=== PATIENT | female | born 1935 | race Caucasian/White ===

== ENCOUNTER 2016-05-06 22:47 | Inpatient (IN) | payer OTHER ==
[~2016-05-06] VITALS: Ht 175.3 cm; Wt 78.6 kg
--- NOTE | ~2016-05-06 | EKG ---
[address] [employer] [address] ELECTROCARDIOGRAM REPORT Name: JOSSE JJ Room #: 428-P ADM IN M.R.#: [id number] Admission: 05/07/16 Attend Phys: Rohith Arizmendi MD Discharge: Date of : 35 Report #: [id number] THIS REPORT FOR: //name// [facility] ED Test Date: 2016-05-06 Test Time: 23:06:04 Pat Name: JOSSE JJ Department: Room: [facility] Gender: F Skills Auditor: T[place] : 1935 Requested By: Yu Vale Order Number: [id number] MD: Onesimo Sheth Measurements Intervals Kathryn Rate: 68 P: 20 AR: 183 QRS: 2 QRSD: 91 T: 53 QT: 365 QTc: 389 Interpretive Statements Sinus rhythm No significant abnormality Compared to ECG 10/29/2015 10:02:58 Sinus tachycardia no longer present Electronically Signed On 05-07-2016 8:50:20 CDT by Onesiom Sheth [email or web address] <ELECTRONICALLY SIGNED> By: Onesimo Sheth MD, [facility] 05/07/16 0850 05 05 Onesimo Sheth MD, [facility] /EPI
[~2016-05-06 22:47] MED LIST: AMLODIPINE; AMLODIPINE BESYL5 MG PO; ANTIFUNGAL15 G1 TP; ARICEPT 5 MG TAB5 MG PO; ARICEPT10 M1 PO; ASPIRIN EC81 M1 PO; ATIVAN0.5 MG PO; AUGMENTIN 875875 MG PO; BENADRYL25 MG PO; BENICAR20 MG PO; BENICAR40 MG PO; CALCIUM500 M1 PO; CIPRO500 MG PO; CIPROFLOXACIN500 M1 PO; CLOTRIMAZOLE 1%15 G1; CLOTRIMAZOLE-BE15 GM; COLACE100 MG PO; COUMADIN 1MG TAB1 M1 PO; DIOVAN160 MG PO; DONEPEZIL; ENOXAPARIN30 MG/0.1 SUBQ; GABAPENTIN 100100 MG PO; HYDROCODONE-AP1 EAC6 PO; IBUPROFEN 200200 M1 PO; KEFLEX500 MG PO; LISINOPRIL10 MG PO; LORAZEPAM; LORAZEPAM 0.50.5 MG PO; LORAZEPAM 1 MG T1 MG PO; METOPROLOL; MIRALAX17 GM PO; NEURONTIN600 MG PO; NORCO 5-325 TA1 EACH PO; NORTRIPTYLINE H25 M3 PO; NORVASC10 MG PO; NYSTATIN 100,0015 G1 TOP; NYSTOP; OLANZAPINE; OLANZAPINE2.5 MG PO; ONDANSETRON HCL4 M2 PO; SENNA PO; TOPROL XL50 MG PO; TRAMADOL 50 MG50 MG PO; TYLENOL325 MG PO; UNICOMPLEX M TA1 TA1 PO; VITAMINC500 PO; ZYPREXA2.5 MG PO
[2016-05-06] MEDS ORDERED: PROSOURCE PROT7.5 GM (23:00)
[2016-05-06] MEDS ORDERED: ATIVAN0.5 MG (23:01)
[2016-05-06] MEDS ORDERED: ADULT TUSS100 MG/5 M (23:02)
[2016-05-06] MEDS ORDERED: CEFTIN 250250 MG/52 PO (23:02)
[2016-05-06] MEDS ORDERED: HYDROCODONE-AP1 EAC6 PO (23:03)
[2016-05-06] MEDS ORDERED: LEXAPRO 10 MG T10 M2 PO (23:04)
[2016-05-06] MEDS ORDERED: VITAMIN D400 UNIT (23:04)
[2016-05-06 23:32] LABS: ABSOLUTE NEUTROPHILS 4.3 thou/uL (1.4-8.2); BASOPHILS 0.9 % (0.0-2.0); EOSINOPHILS 6.8 % (0.0-3.0); HEMOGLOBIN 11.1 gm/dL (12.0-15.0); LYMPHOCYTES 37.8 % (24.0-44.0); MCH 24.6 pg (26.0-34.0); MCHC 31.7 g/dL (28.0-37.0); MCV 77.7 fL (80.0-100.0); MONOCYTES 9.1 % (1.0-8.0); PLATELET COUNT 317 thou/uL (150-400); POLYS 45.4 % (36.0-66.0); RDW 15.5 % (10.5-14.5); WBC 9.5 thou/uL (4.0-11.0)
[2016-05-06 23:35] LABS: MANUAL DIFF NO
[2016-05-06 23:44] LABS: APTT 32.5 Seconds (24.5-32.8); INR 1.3; PROTIME 13.4 Seconds (9.3-11.4)
[2016-05-06 23:54] LABS: ALBUMIN 2.8 g/dL (3.4-5.0); ALKALINE PHOSPHATASE 89 U/L (46-116); ANION GAP 6 mmol/L (7-16); BUN 15 mg/dL (7-18); CALCIUM 8.8 mg/dL (8.5-10.1); CHLORIDE 104 mmol/L (98-107); CO2 32 mmol/L (21-32); CREATININE 0.7 mg/dL (0.6-1.3); GLUCOSE 99 mg/dL (70-99); NT-PRO BRAIN NAT PEPTIDE 313 pg/mL (<300); POTASSIUM 4.3 mmol/L (3.5-5.1); SGOT 17 U/L (15-37); SGPT 15 U/L (30-65); SODIUM 142 mmol/L (136-145); TOTAL BILIRUBIN 0.2 mg/dL (<0.1-1.0); TOTAL PROTEIN 6.5 g/dL (6.4-8.2); TROPONIN-I < 0.04 ng/mL (<0.04-0.07)
[2016-05-07 00:45] LABS: URINE BILIRUBIN NEGATIVE (Negative); URINE BLOOD NEGATIVE (Negative); URINE COLOR YELLOW; URINE GLUCOSE-RANDOM* NEGATIVE (Negative); URINE KETONES TRACE (Negative); URINE LEUKOCYTES-REFLEX 1+ (Negative); URINE PROTEIN (DIPSTICK) NEGATIVE (Negative); URINE SPECIFIC GRAVITY 1.015 (1.003-1.035); URINE UROBILINOGEN 0.2 E.U./dl (0.2-1.0)
[2016-05-07 01:11] LABS: CASTS None Seen /LPF (None Seen); CRYSTALS None Seen /LPF (None Seen); SQUAMOUS 0-3 Few /LPF (0-3); URINE RBC 3-10 Few /HPF (0-2); URINE WBC-REFLEX 6-15 Few /HPF (0-5)
[2016-05-08 04:08] LABS: HEMATOCRIT 33.9 % (37.0-47.0); HEMOGLOBIN 10.9 gm/dL (12.0-15.0); MCHC 32.1 g/dL (28.0-37.0); RBC 4.35 mil/uL (4.20-5.00); RDW 15.5 % (10.5-14.5); WBC 8.5 thou/uL (4.0-11.0)
[2016-05-08 04:21] LABS: CALCIUM 8.3 mg/dL (8.5-10.1); CREATININE 0.7 mg/dL (0.6-1.3); POTASSIUM 3.8 mmol/L (3.5-5.1)
== END 2016-05-08 14:37 | DRG 690 ==
LOC: ER 22:47 → 4E 05-07 01:24 → EROBS 05-07 01:24 → 4E 05-07 01:50
PROVIDERS: Emergency Medicine; Hospitalist
DX: N39.0 Urinary tract infection, site not specified (principal); E44.0 Moderate protein-calorie malnutrition; I10 Essential (primary) hypertension; G62.9 Polyneuropathy, unspecified; F03.90 Unspecified dementia, unspecified severity, without behavioral disturbance, psychotic disturbance, mood disturbance, and anxiety; I95.9 Hypotension, unspecified; J44.9 Chronic obstructive pulmonary disease, unspecified; K21.9 Gastro-esophageal reflux disease without esophagitis; F41.9 Anxiety disorder, unspecified; M79.7 Fibromyalgia; F32.9 Major depressive disorder, single episode, unspecified; Z28.21 Immunization not carried out because of patient refusal; Z88.8 Allergy status to other drugs, medicaments and biological substances; Z68.25 Body mass index [BMI] 25.0-25.9, adult; Z90.710 Acquired absence of both cervix and uterus
CPT/HCPCS: 10183

== ENCOUNTER 2016-08-26 22:45 | Inpatient (IN) | payer OTHER ==
[~2016-08-26] VITALS: Ht 175.3 cm; Wt 72.6 kg
[~2016-08-26 22:45] MED LIST changes: +ADULT TUSS100 MG/5 M; +ATIVAN0.5 MG; +CEFTIN 250250 MG/52 PO; +LEXAPRO 10 MG T10 M2 PO; +PROSOURCE PROT7.5 GM; +VITAMIN D400 UNIT
[2016-08-26 23:46] LABS: ABSOLUTE NEUTROPHILS 1.4 thou/uL (1.4-8.2); HEMOGLOBIN 11.3 gm/dL (12.0-15.0); MCH 24.3 pg (26.0-34.0); MCHC 31.4 g/dL (28.0-37.0)
[2016-08-26 23:48] LABS: EOSINOPHILS 8.1 % (0.0-3.0); LYMPHOCYTES 53.2 % (24.0-44.0); MCV 77.4 fL (80.0-100.0); MONOCYTES 11.7 % (1.0-8.0); PLATELET COUNT 197 thou/uL (150-400); RBC 4.66 mil/uL (4.20-5.00); RDW 16.5 % (10.5-14.5); WBC 5.6 thou/uL (4.0-11.0)
[2016-08-26 23:49] LABS: MANUAL DIFF NO
[2016-08-27 00:05] LABS: ANION GAP 3 mmol/L (7-16); BUN 16 mg/dL (7-18); CALCIUM 8.2 mg/dL (8.5-10.1); CHLORIDE 106 mmol/L (98-107); CO2 32 mmol/L (21-32); CREATININE 0.9 mg/dL (0.6-1.0); GLUCOSE 101 mg/dL (74-106); POTASSIUM 3.6 mmol/L (3.5-5.1); SODIUM 141 mmol/L (136-145)
[2016-08-27 00:16] LABS: ALBUMIN 2.7 g/dL (3.4-5.0); ALKALINE PHOSPHATASE 99 U/L (46-116); DIRECT BILIRUBIN < 0.1 mg/dL (<0.1-0.3); NT-PRO BRAIN NAT PEPTIDE 258 pg/mL (<300); SGOT 32 U/L (15-37); SGPT 22 U/L (30-65); TOTAL BILIRUBIN 0.2 mg/dL (<0.1-1.0); TOTAL PROTEIN 6.3 g/dL (6.4-8.2); TROPONIN-I < 0.04 ng/mL (<0.04-0.07)
[2016-08-27 00:40] LABS: URINE BILIRUBIN NEGATIVE (Negative); URINE BLOOD TRACE (Negative); URINE COLOR YELLOW; URINE GLUCOSE-RANDOM* NEGATIVE (Negative); URINE KETONES NEGATIVE (Negative); URINE LEUKOCYTES-REFLEX 3+ (Negative); URINE PROTEIN (DIPSTICK) NEGATIVE (Negative); URINE SPECIFIC GRAVITY 1.015 (1.003-1.035)
[2016-08-27 00:52] LABS: SQUAMOUS 0-3 Few /LPF (0-3)
[2016-08-27 00:53] LABS: CASTS None Seen /LPF (None Seen); CRYSTALS None Seen /LPF (None Seen); URINE RBC 0-2 Rare /HPF (0-2); URINE WBC-REFLEX >25 Many /HPF (0-5)
[2016-08-27 01:59] VITALS: BP 111/50
[2016-08-27 02:19] VITALS: BP 130/45
[2016-08-27 07:45] VITALS: BP 143/72
[2016-08-27 11:01] LABS: INR 4.1; PROTIME 42.2 Seconds (9.3-11.4)
[2016-08-27 15:44] VITALS: BP 105/55
[2016-08-27 20:43] VITALS: BP 116/56
[2016-08-28 04:03] VITALS: BP 116/60
[2016-08-28 05:11] LABS: HEMATOCRIT 36.5 % (37.0-47.0); HEMOGLOBIN 11.4 gm/dL (12.0-15.0); MCH 24.1 pg (26.0-34.0); MCHC 31.3 g/dL (28.0-37.0); MCV 76.8 fL (80.0-100.0); RBC 4.76 mil/uL (4.20-5.00); WBC 5.4 thou/uL (4.0-11.0)
[2016-08-28 06:03] LABS: INR 4.1; PROTIME 42.8 Seconds (9.3-11.4)
[2016-08-28 06:11] LABS: CALCIUM 8.4 mg/dL (8.5-10.1); CREATININE 0.7 mg/dL (0.6-1.0); POTASSIUM 3.7 mmol/L (3.5-5.1)
[2016-08-28 07:45] VITALS: BP 156/71
[2016-08-28 15:51] VITALS: BP 109/54
[2016-08-28 18:47] VITALS: BP 112/53
[2016-08-29 04:00] VITALS: BP 119/53
[2016-08-29 05:46] LABS: INR 3.1; PROTIME 32.7 Seconds (9.3-11.4)
[2016-08-29 09:07] VITALS: BP 153/72
[2016-08-29 16:57] VITALS: BP 122/61
[2016-08-29 19:42] VITALS: BP 111/47
[2016-08-30 04:46] VITALS: BP 146/64
[2016-08-30 06:06] LABS: INR 2.1; PROTIME 21.8 Seconds (9.3-11.4)
[2016-08-30 08:08] VITALS: BP 131/63
[2016-08-30 19:23] VITALS: BP 119/51
[2016-08-31 04:00] VITALS: BP 129/69
[2016-08-31 08:11] VITALS: BP 139/54
[2016-08-31 08:17] LABS: INR 1.9; PROTIME 19.3 Seconds (9.3-11.4)
[2016-08-31 17:21] VITALS: BP 134/51
[2016-08-31 20:32] VITALS: BP 125/65
[2016-09-01 04:47] VITALS: BP 128/66
[2016-09-01 04:49] LABS: INR 1.9; PROTIME 19.8 Seconds (9.3-11.4)
[2016-09-01 08:00] VITALS: BP 120/59
[2016-09-01] MEDS ORDERED: BACTRIM DS TAB1 EACH PO (11:53)
[2016-09-01] MEDS ORDERED: HYDROCODONE-AP1 EAC6 PO (11:53)
== END 2016-09-01 15:31 | DRG 689 ==
LOC: ER 22:45 → EROBS 08-27 01:12 → 5S 08-27 01:12
PROVIDERS: Emergency Medicine; Hospitalist; Nurse Practitioner Family
DX: N39.0 Urinary tract infection, site not specified (principal); E43 Unspecified severe protein-calorie malnutrition; I10 Essential (primary) hypertension; G62.9 Polyneuropathy, unspecified; J44.9 Chronic obstructive pulmonary disease, unspecified; F03.90 Unspecified dementia, unspecified severity, without behavioral disturbance, psychotic disturbance, mood disturbance, and anxiety; K59.00 Constipation, unspecified; K21.9 Gastro-esophageal reflux disease without esophagitis; B96.4 Proteus (mirabilis) (morganii) as the cause of diseases classified elsewhere; F41.9 Anxiety disorder, unspecified; Z88.1 Allergy status to other antibiotic agents; Z88.6 Allergy status to analgesic agent; Z79.01 Long term (current) use of anticoagulants; Z90.710 Acquired absence of both cervix and uterus; Z68.23 Body mass index [BMI] 23.0-23.9, adult
CPT/HCPCS: 10086

== ENCOUNTER 2017-06-27 12:09 | Inpatient (IN) | payer OTHER ==
[~2017-06-27] VITALS: Ht 175.3 cm; Wt 61.3 kg
--- NOTE | ~2017-06-27 | HC ---
[facility] [place] [address] CONSULTATION Name: JOSSE JJ Room #: 426-P ADM IN M.R.#: [id number] Admission: 06/27/17 Attend Phys: Jason Moore MD Discharge: Date of : 35 Report #: [id number] THIS REPORT FOR: //name// CC: Jason Paredesyam Akkulugari DATE OF SERVICE: 06/28/2017 REASON FOR CONSULTATION: Traumatic abrasion or laceration of right forearm with right forearm cellulitis. HISTORY OF PRESENT ILLNESS: The patient is an 81-year-old woman accompanied to [facility] by her daughter. She was admitted through the Emergency Room with a wound of her right upper extremity, apparently from some form of trauma. However, the exact mechanism of injury to the arm is indeterminate. The patient is residing at [facility]. She was brought to the Emergency Room by her daughter. She was noted to have laceration or abrasion of the dorsal surface of her right forearm. She has been on antibiotics, Bactrim, and Keflex. However, the arm became worse with more swelling and redness. Wound was present for over 1 week. The patient's daughter was concerned because the right arm is more red and swollen. She brought her to the Emergency Room. Keflex over 1 week did not help. PAST MEDICAL HISTORY: History of bilateral pneumonia, chronic dementia, history of hospital-acquired pneumonia, hypertension, history of hypokalemia, history of urinary tract infection, hypertension, peripheral neuropathy, COPD, gastroesophageal reflux disease, history of anxiety. PAST SURGICAL HISTORY: Hysterectomy. ALLERGIES: CEFTIN and DARVOCET. MEDICATIONS: Include oral Keflex on admission and then Bactrim, hydrocodone, Zyprexa, Norvasc, calcium, Zestril, MiraLax, Ativan, Lexapro, Aricept and Tylenol. SOCIAL HISTORY: [facility] She has history of dementia and repeated falls. REVIEW OF SYSTEMS: Limited secondary to dementia. PHYSICAL EXAMINATION: GENERAL: Shows a chronically ill-appearing elderly woman with dementia. She is responsive, but has anxiety. VITAL SIGNS: Stable. The patient is afebrile, temperature 98.7. HEENT: Mucous membranes are moist. [address] [address] CONSULTATION Name: JOSSE JJ Room #: 426-P [facility] IN .R.#: [id number] Admission: 06/27/17 Attend Phys: Jason Moore MD Discharge: Date of : 35 Report #: [id number] NECK: Supple. LUNGS: Respirations are unlabored. ABDOMEN: Soft. HEART: Shows regular rate and rhythm. EXTREMITIES: Show swelling of the entire right arm. There is bright red cellulitis of the right upper arm above the elbow and at the elbow with edema. On the dorsal aspect of the right forearm, there is a large irregular open wound, which appears to possibly have been traumatic in origin, although appearance of the wound is indeterminate for possible abrasion, laceration, pressure or contusion. There is a darkish brown, black deng adherent necrotic eschar over the central portion of the wound with wound measuring approximately 7 x 10 cm. Eschar appears liquefying underneath it and would be appropriate for debridement at this time. The patient does not appear septic. LABORATORY DATA: White blood count 9.6. IMPRESSION: 1. Dementia. 2. Peripheral neuropathy. 3. Apparent traumatic wound of right forearm with secondary infection and cellulitis of the right arm. PLAN: IV antibiotics. Consult Dr. Miguel Jones of infectious disease. Wound culture taken. We will obtain consent for excisional debridement of the wound to do debridement of the large dark necrotic eschar. We will treat wound topically with morphine, Silvadene, Xeroform dressing changed daily. Keep right arm elevated. Wound may require repeated debridement. Wound care team will follow. <ELECTRONICALLY SIGNED> By: Eduardo Benjamin MD 07/01/17 1245 1804 0625 Eduardo Bnejamin MD /nt
--- NOTE | ~2017-06-27 | O ---
[facility] [place] [address] OPERATIVE REPORT Name: JOSSE JJ Room #: 426-P ADM IN M.R.#: [id number] Admission: 06/27/17 Attend Phys: Jason Moore MD Discharge: Date of : 35 Report #: [id number] THIS REPORT FOR: //name// CC: Jason Fenton Akkulugari DATE OF SERVICE: 06/29/2017 PREOPERATIVE DIAGNOSIS: Necrotic wound of right forearm with necrotic skin and subcutaneous tissue. POSTOPERATIVE DIAGNOSIS: Necrotic wound of right forearm with necrotic skin and subcutaneous tissue. PROCEDURE: Excisional debridement of skin and subcutaneous tissue down to healthy bleeding subcutaneous tissue. WEB MERCHANDISER: Eduardo Benjamin MD ANESTHESIA: Local 1% lidocaine with epinephrine. INDICATIONS: The patient is an 81-year-old woman who presented to [facility] through the Emergency Room with extreme cellulitis and swelling of her right arm. The patient has a wound of her forearm of indeterminate origin with a necrotic eschar with surrounding cellulitis coming up the arm. Due to the presence of a large necrotic eschar, debridement was required. Informed consent was obtained for excisional debridement of skin and subcutaneous tissue. DESCRIPTION OF PROCEDURE: The patient is sitting in a chair. Local anesthesia was done with 10 mL of 1% lidocaine with epinephrine injected at the site of the wound. Using a forceps and a sharp scissor, as well as a curette, the entire large necrotic patch of skin and subcutaneous tissue was excised en bloc. This exposed a purulent base of the wound with necrotic subcutaneous tissue and some purulent material. Wound cultures were taken. Sharp debridement was done of necrotic subcutaneous adipose tissue down to healthy bleeding subcutaneous tissue. Most of the necrotic tissue was debrided away. There was some remaining exudate and non-granulating adipose tissue. Wound was much vacuum cleaner mechanic after debridement. Wound measured 10 cm x 7 cm x 0.4 cm deep at its deepest portion and 100% of the wound, 70 cm2, was debrided. This was a sharp excisional debridement of skin and subcutaneous tissue using a scissor and a curette. The 100% of the wound was debrided. Deepest depth of debridement was subcutaneous tissue. Hemostasis was complete with pressure and silver nitrate in 2 spots. Morphine, Silvadene dressing, and Xeroform was applied. The patient will continue IV antibiotics, keeping the arm elevated. Further debridement may be necessary in the future; however, residual nonviable tissue [address] [address] OPERATIVE REPORT Name: JOSSE JJ Room #: 426-P ADM IN M.R.#: [id number] Admission: 06/27/17 Attend Phys: Jason Moore MD Discharge: Date of : 35 Report #: [id number] would be expected to slough by autolytic debridement with Silvadene. The patient tolerated the procedure well with minimal pain. <ELECTRONICALLY SIGNED> By: Eduardo Benjamin MD 07/01/17 1245 1751 0527 Eduardo Benjamin MD /[place]
[~2017-06-27 12:09] MED LIST changes: +BACTRIM DS TAB1 EACH PO
[2017-06-27 12:12] VITALS: BP 148/69
[2017-06-27 13:15] LABS: HEMATOCRIT 42.9 % (37.0-47.0); HEMOGLOBIN 14.1 gm/dL (12.0-15.0); MCH 25.9 pg (26.0-34.0); MCHC 32.7 g/dL (28.0-37.0); MCV 79.1 fL (80.0-100.0); PLATELET COUNT 419 thou/uL (150-400); RBC 5.43 mil/uL (4.20-5.00); RDW 16.6 % (10.5-14.5); WBC 9.6 thou/uL (4.0-11.0)
[2017-06-27 13:25] LABS: CALCIUM 8.8 mg/dL (8.5-10.1); CREATININE 0.7 mg/dL (0.6-1.0); POTASSIUM 3.8 mmol/L (3.5-5.1)
[2017-06-27 13:32] LABS: ALBUMIN 2.3 g/dL (3.4-5.0); TOTAL BILIRUBIN 0.5 mg/dL (<0.1-1.0); TOTAL PROTEIN 6.9 g/dL (6.4-8.2)
[2017-06-27 13:57] LABS: ABSOLUTE NEUTROPHILS 6.1 thou/uL (1.4-8.2); METAMYELOCYTES 2 %; MYELOCYTES 1 %; PLATELET ESTIMATE NORMAL
[2017-06-27 14:59] VITALS: BP 148/69
[2017-06-27 15:40] VITALS: BP 150/71
[2017-06-27 16:00] VITALS: BP 149/74
[2017-06-27 20:19] VITALS: BP 140/84
[2017-06-28 00:01] VITALS: BP 127/81
[2017-06-28 04:38] VITALS: BP 135/69
[2017-06-28 05:31] LABS: HEMATOCRIT 37.6 % (37.0-47.0); MCH 25.1 pg (26.0-34.0); MCHC 31.8 g/dL (28.0-37.0); MCV 78.9 fL (80.0-100.0); PLATELET COUNT 372 thou/uL (150-400); RBC 4.76 mil/uL (4.20-5.00); RDW 16.4 % (10.5-14.5); WBC 9.1 thou/uL (4.0-11.0)
[2017-06-28 05:33] LABS: HEMOGLOBIN 11.9 gm/dL (12.0-15.0)
[2017-06-28 05:47] LABS: CALCIUM 8.3 mg/dL (8.5-10.1); CREATININE 0.6 mg/dL (0.6-1.0); MAGNESIUM 1.9 mg/dL (1.8-2.4); POTASSIUM 3.3 mmol/L (3.5-5.1)
[2017-06-28 07:21] VITALS: BP 127/53
[2017-06-28 07:27] LABS: ABSOLUTE NEUTROPHILS 5.6 thou/uL (1.4-8.2); METAMYELOCYTES 1 %; MYELOCYTES 1 %
[2017-06-28 07:28] LABS: ANISOCYTOSIS SLIGHT; MICROCYTES 1+; OVALOCYTES 1+; POIKILOCYTOSIS 1+
[2017-06-28 07:33] LABS: TOXIC GRANULATION 2+
[2017-06-28 15:10] VITALS: BP 130/81
[2017-06-28 20:06] VITALS: BP 132/88
[2017-06-28 23:46] VITALS: BP 132/88
[2017-06-29 04:07] VITALS: BP 149/89
[2017-06-29 07:10] VITALS: BP 120/45
[2017-06-29 15:15] VITALS: BP 120/45
[2017-06-29 20:00] VITALS: BP 126/78
[2017-06-30 07:50] VITALS: BP 120/45
[2017-06-30 19:52] VITALS: BP 152/75
[2017-07-01 04:00] VITALS: BP 133/47
[2017-07-01 08:08] VITALS: BP 150/73
[2017-07-01] MEDS ORDERED: VANCO 750750 MG/150 IV (13:51)
== END 2017-07-01 16:00 | DRG 264 ==
LOC: ER 12:09 → EROBS 13:47 → 4E 13:47
PROVIDERS: Nurse Practitioner; Physician Assistant
PROC: 05HN33Z Insertion of Infusion Device into Left Internal Jugular Vein, Percutaneous Approach (ICD-10-PCS; 2017-06-27)
PROC: 0JBG0ZZ Excision of Right Lower Arm Subcutaneous Tissue and Fascia, Open Approach (ICD-10-PCS; principal; 2017-06-29)
DX: I96 Gangrene, not elsewhere classified (principal); E43 Unspecified severe protein-calorie malnutrition; L03.113 Cellulitis of right upper limb; Z68.1 Body mass index [BMI] 19.9 or less, adult; I10 Essential (primary) hypertension; F32.9 Major depressive disorder, single episode, unspecified; R29.6 Repeated falls; Z66 Do not resuscitate; Z51.5 Encounter for palliative care; M79.7 Fibromyalgia; G62.9 Polyneuropathy, unspecified; F03.90 Unspecified dementia, unspecified severity, without behavioral disturbance, psychotic disturbance, mood disturbance, and anxiety; J44.9 Chronic obstructive pulmonary disease, unspecified; K21.9 Gastro-esophageal reflux disease without esophagitis; F41.9 Anxiety disorder, unspecified; Z90.710 Acquired absence of both cervix and uterus; Z79.899 Other long term (current) drug therapy; Z88.8 Allergy status to other drugs, medicaments and biological substances
CPT/HCPCS: 10084; 27000